=== PATIENT | male | born 1995 | race Two or more races ===

== ENCOUNTER 2023-12-26 18:20 | Emergency (ER) | payer OTHER ==
[~2023-12-26] VITALS: Ht 188 cm; Wt 95.3 kg
[2023-12-26] MEDS ORDERED: ONDANSETRON HCL 2 MG/ML VIAL IV STA (19:57)
[2023-12-26] MEDS ORDERED: 0.9 % SODIUM CHLORIDE 500 ML IV STA (19:58)
[2023-12-26] MEDS ORDERED: FAMOTIDINE/PF 20 MG/2 ML VIAL IV PUSH STA (19:58)
[2023-12-26 20:42] LABS: HEMATOCRIT 48.2 % (39.0-48.0); HEMOGLOBIN 16.2 g/dL (13-16.00); MEAN CORPUSCULAR HGB CONC 33.7 g/dl (32.0-36.0); PLATELET COUNT 181 K/uL (150-450); RED CELL DISTRIBUTION WIDTH 13.2 % (11.5-14.5)
[2023-12-26 21:34] LABS: ALBUMIN 4.4 gm/dL (3.4-5.0); BILIRUBIN TOTAL 0.56 mg/dL (0.3-1.2); CALCIUM 9.6 mg/dL (8.5-10.1); CREATININE SERUM 1.06 mg/dL (0.70-1.30); GFR 83.8; GLOBULINA 4.1 G/DL (2.4-3.5); POTASSIUM 3.75 mEq/L (3.5-5.1); TOTAL PROTEIN 8.5 gm/dL (6.4-8.2); TSH 3.82 uIU/mL (0.358-3.74)
[2023-12-26] MEDS ORDERED: PEPCID AC20 MG PO (22:17)
== END 2023-12-26 22:23 | disposition home or self-care (01) ==
LOC: ER 18:22
PROVIDERS: General Practice
DX: K29.70 Gastritis, unspecified, without bleeding (principal); R51.9 Headache, unspecified; R53.1 Weakness